=== PATIENT | female | born 1955 | race Caucasian/White ===

== ENCOUNTER → 2022-05-12 07:14 | Outpatient (CLI) | payer SELFPAY ==
[2022-05-12 09:55] LABS: Thyroid Stimulating Hormone 2.57 uIU/mL (0.47-4.68)
== END ==
PROVIDERS: PCP Nurse Practitioner Family; Referring Provider Nurse Practitioner Family; Visit Provider Nurse Practitioner Family
DX: E03.9 Hypothyroidism, unspecified (principal)
CPT/HCPCS: 36415; 84439; 84443

== ENCOUNTER 2023-11-10 07:18 | Emergency (ER) | payer MEDICARE, SELFPAY ==
[2023-11-10] VITALS (11 sets, daily range): BP systolic 148–177; BP diastolic 70–77; PULSE 70–89; RESP 16–19; TEMP 37.1–37.2; O2SAT 96–100; BMI 32.1
[2023-11-10 07:58] LABS: Add Manual Diff / Slide Review NO; Basophils Absolute Auto 100 /uL (0-100); Basophils Percent Auto 0.7 % (0-2); Eosinophils Absolute Auto 200 /uL (0-450); Eosinophils Percent Auto 1.6 % (2-4); Hematocrit 40.2 % (36-46); Lymphocytes Absolute Auto 1900 /uL (1100-4500); Lymphocytes Percent Auto 13.2 % (25-40); Mean Corpuscular HGB Conc 32.4 % (30-36); Mean Corpuscular Hemoglobin 26.4 PG (26-34); Mean Corpuscular Volume 81.7 fL (80-100); Monocytes Absolute Auto 700 /uL (0-900); Monocytes Percent Auto 5.3 % (3-14); Neutrophils Absolute Auto 11100 /uL (1500-7000); Neutrophils Percent Auto 79.2 % (50-75); Platelet Count 413 X10^3/uL (150-400); Red Blood Cell Count 4.92 X10^6/uL (4.0-5.2); Red Cell Distribution Width 15.2 % (11.6-14.8)
--- NOTE | 2023-11-10 08:07 | ED.NAVMDI ---
HPI - Nausea/Vomiting/Diarrhea General Chief complaint: Nausea/Vomiting/Diarrhea Stated complaint: diarrhea t-4, nausea, loss apetite Time Seen by Provider: 11/10/23 08:07 Source: patient, family, RN notes reviewed and old records reviewed Mode of arrival: Ambulatory Limitations: no limitations History of Present Illness HPI Narrative: 68-year-old female with history hypothyroidism, bladder dysfunction who presents with 4 days of chills, low-grade fevers nausea but no vomiting decreased appetite, lower abdominal pain and frequent liquidy brown stools with occasional small amounts of bright red blood up to 10 times daily with a sense of urgency. Patient also notes a little bit of rectal pain. She has a known hemorrhoid but states it seems like more. She denies any back or flank pain. She does not have any chest pain or shortness of breath. She has not had similar symptoms in the past. No recent travel. No other sick contacts she is aware of. She takes medication for thyroid, bladder and has had a prior hysterectomy and appendectomy. States allergic to Keflex and penicillin gets hives but has tolerated amoxicillin in the past. No tobacco, occasional alcohol, no recreational drugs. Related Data Previous Rx's Medication Instructions Recorded amoxicillin 875 mg-potassium 1 tab PO BID #20 tabs 11/10/23 clavulanate 125 mg tablet ondansetron 4 mg disintegrating 4 mg PO QID PRN nausea and 11/10/23 tablet vomiting #10 tabs Allergies Allergy/AdvReac Type Severity Reaction Status Date / Time cephalexin [From Keflex] Allergy Hives Verified 11/10/23 07:33 Penicillins Allergy Hives Verified 11/10/23 07:34 Review of Systems Review of Systems ROS Unobtainable: All systems reviewed & are unremarkable except as noted in HPI and below Patient History Social History Smoking Status: Never smoker Smoking Status: Never smoker alcohol intake frequency: holidays/special occasions only Substance Use Type: does not use Exam Narrative Exam Narrative: GENERAL: Alert and oriented x three, female in mild distress HEENT: Head normocephalic, atraumatic, EOMI, pupils reactive, face symmetric, moist mucous membranes NECK: Supple, full range of motion CARDIOVASCULAR: Regular rate and rhythm without murmurs, rubs or gallops. RESPIRATORY: Breath sounds equal bilaterally, no wheezes rales or rhonchi. ABDOMEN: Soft, positive for suprapubic and left lower quadrant tenderness with some mild left upper quadrant tenderness. Normoactive bowel sounds all 4 quadrants. No guarding or rebound, rigidity, no mass, nondistended. : No CVA tenderness EXTREMITIES: Normal range of motion, no clubbing or edema. Neurovascularly intact NEUROLOGICAL: Cranial nerves II through XII grossly intact. Moving all extremities SKIN: Warm, dry, no petechiae, no rashes or lesions. Initial Vital Signs Initial Vital Signs: Vital Signs Temperature 99 F 11/10/23 07:29 Pulse Rate 89 11/10/23 07:29 Respiratory Rate 19 11/10/23 07:29 Blood Pressure 177/77 H 11/10/23 07:29 Pulse Oximetry 99 11/10/23 07:29 Oxygen Delivery Method Room Air 11/10/23 07:29 Course Orders Ordered: ED Orders 11/10/23 10:28 GI Panel (Film Array) Stat Discontinued Medications Sodium Chloride (Normal Saline 0.9%) 1,000 mls @ 1,000 mls/hr IV BOLUS ONE Stop: 11/10/23 09:19 Last Infusion: 11/10/23 09:41 Dose: Infused Documented By: Admin: 11/10/23 08:23 Dose: 1,000 mls/hr Documented By: JUNO Ondansetron HCl (Ondansetron 4 Mg Odt) 4 mg PO NOW PRN PRN Reason: Nausea And Vomiting Ondansetron HCl (Ondansetron 4 Mg/2 Ml Inj) 4 mg IV NOW PRN PRN Reason: Nausea And Vomiting Last Admin: 11/10/23 08:23 Dose: 4 mg Documented By: JUNO Vital Signs Vital signs: Vital Signs - 8 hr 11/10/23 12:08 Temperature 98.8 F Pulse Rate 72 Respiratory Rate 16 Blood Pressure 161/72 H Pulse Oximetry 98 MDM - Nausea/Vomiting/Diarrhea Lab Data 11/10/23 07:45 11/10/23 07:45 Labs: Lab Results 11/10/23 11/10/23 11/10/23 Range/Units 07:45 09:14 10:28 WBC 14.0 H (4.5-11.0) X10^3/uL RBC 4.92 (4.0-5.2) X10^6/uL Hgb 13.0 (12.0-16.0) g/dL Hct 40.2 (36-46) % MCV 81.7 (80-100) fL MCH 26.4 (26-34) PG MCHC 32.4 (30-36) % RDW 15.2 H (11.6-14.8) % Plt Count 413 H (150-400) X10^3/uL Neut % (Auto) 79.2 H (50-75) % Lymph % (Auto) 13.2 L (25-40) % Monroe % (Auto) 5.3 (3-14) % Eos % (Auto) 1.6 L (2-4) % Baso % (Auto) 0.7 (0-2) % Neut # (Auto) 26946 H (7323-8463) /uL Lymph # (Auto) 1900 (6997-6965) /uL Monroe # (Auto) 700 (0-900) /uL Eos # (Auto) 200 (0-450) /uL Baso # (Auto) 100 (0-100) /uL Sodium 137 (137-145) mmol/L Potassium 4.4 (3.4-5.1) mmol/L Chloride 104 (98-107) mmol/L Carbon Dioxide 22 (22-32) mmol/L BUN 18 H (7-17) mg/dL Creatinine 0.84 (0.52-1.04) mg/dL Estimated GFR > 60 (>60) mL/min BUN/Creatinine Ratio 21.4 (6-22) Glucose 114 H (80-110) mg/dL Calcium 9.8 (8.4-10.2) mg/dL Total Bilirubin 0.4 (0.2-1.3) mg/dL AST 29 (14-36) IU/L ALT 43 H (<35) IU/L Alkaline Phosphatase 78 (38-126) U/L Total Protein 8.5 H (6.3-8.2) g/dL Albumin 4.9 (3.5-5.0) g/dL Globulin 3.6 (1.7-4.1) g/dL Albumin/Globulin Ratio 1.4 (1.0-2.8) Lipase 73 (23-300) U/L Urine RBC 0-1/hpf (0-5/HPF) Urine WBC 5-10/hpf H (0-5/HPF) Ur Squamous Epith Cells 1-5 /hpf (0-5/HPF) Urine Bacteria Many (>30) H (None) Ur Culture Indicated? Specimen cultured Vol Urine Centrifuged 10ml (spun) Stl C. cayetanensis PCR Not detected (Not Detect) Stool Rotavirus (PCR) Not detected (Not Detect) Stool Adenovirus (PCR) Not detected (Not Detect) Stool Astrovirus (PCR) Not detected (Not Detect) Stool Cryptosporidium PCR Not detected (Not Detect) Stl E.coli Shiga Tox PCR Not detected (Not Detect) St Sh/Enteroin Ecoli PCR Not detected (Not Detect) Stl Enterotoxigenic E PCR Not detected (Not Detect) Stool EPEC (PCR) Not detected (Not Detect) Stl E. histolytica PCR Not detected (Not Detect) Stool Giardia Lamblia PCR Not detected (Not Detect) Stool Sapovirus (PCR) Not detected (Not Detect) Stl P. shigelloides PCR Not detected (Not Detect) St Y.enterocolitica PCR Not detected (Not Detect) Stool Vibrio (PCR) Not detected (Not Detect) Stl Vibrio cholerae PCR Not detected (Not Detect) Stl Enteroaggr Ecoli PCR Not detected (Not Detect) Stl Norovirus GI/GII PCR Not detected (Not Detect) Campylobacter (PCR) Not detected (Not Detect) C. difficile Tox (PCR) Not detected (Not Detect) Salmonella (PCR) Not detected (Not Detect) Urine Dip Bedside Urine Glucose Negative Bedside Urine Bilirubin - Negative Bedside Urine Ketone - Negative Urine Specific Sar[place] 1.015 Bedside Urine Occult Blood - Negative Bedside Urine pH 6.0 Bedside Urine Protein - Negative Bedside Urine Urobilinogen - Negative Bedside Urine Nitrite + Positive Bedside Urine Leukocytes +/- [address] scan - abdomen/pelvis: Radiologist's Impression: [address] [address] [address] Scan Report Signed Patient: Blanka Snow MR#: [id number] : 1955 Acct:[id number] Age/Sex: 68 / F Date of Service: 11/10/23 Loc: ED Accession Number: [id number] Procedure: CT abdomen pelvis w con Ordering Provider: Stephany Lewis D.O. PROCEDURE: CT ABDOMEN PELVIS W CON INDICATIONS: fever, diarrhea, small blood LLQ tenderness TECHNIQUE: After the administration of intravenous contrast, axial sections acquired from the lung bases to the pubic symphysis. Coronal and sagittal reformats were performed. For radiation dose reduction, the following was used: automated exposure control, adjustment of mA and/or kV according to patient size. COMPARISON: None. FINDINGS: Image quality: Diagnostic. Lower Chest: No significant findings. ABDOMEN: Liver: No solid mass. Very mild diffuse hepatic steatosis. Gallbladder: No radiopaque gallstones or wall thickening. Biliary ducts: No biliary dilation. Pancreas: No ductal dilation. Spleen: Size is within normal limits. Adrenal Glands: No adrenal nodules. Kidneys and Ureters: No hydronephrosis. No solid mass. No complex renal cystic lesion which requires follow up. Stomach and Bowel: There is diffuse thickening of the wall of the entire colon with associated date edema and inflammatory change in the adjacent fat. Findings are most notable in the descending colon and sigmoid and rectum. Findings are consistent with diffuse colitis. Remote appendectomy. Peritoneum: No abnormal intraperitoneal fluid. No free air. Ventral Wall: No significant ventral hernia. Abdominal Nodes: No retroperitoneal or mesenteric adenopathy by size criteria. Vessels: Aorta and inferior vena cava are normal in size. PELVIS: Pelvic Organs: There is a complex thick-walled cystic lesion the left adnexa, was overall measurements are 6.1 x 3.6 x 5.5 cm. Uterus is surgically absent. Bladder: No bladder wall thickening, accounting for underdistention. Pelvic Nodes: No enlarged lymph nodes. Miscellaneous: No inguinal hernias are seen. Bones: No aggressive osseous abnormality. IMPRESSION: 1. Diffuse colitis. Consider infectious versus inflammatory colitis. Consider C difficile colitis. 2. Complex cystic thick-walled appearance of left adnexa, which measures 6.1 cm in maximum diameter. Recommend nonemergent pelvic ultrasound. 3. Remote appendectomy and hysterectomy. Dictated by: Zain Ramos M.D. on 11/10/2023 at 8:53 Approved by: Zain Ramos M.D. on 11/10/2023 at 8:59 ECG Data Attestation: I personally reviewed and interpreted this ECG as follows: Prior ECG tracings: not available for review Interpretation: Sinus rhythm rate of 76 SD 152 QRS is 76 QTC of 445. No acute ST changes appreciated. No priors for comparison. MDM Narrative Medical decision making narrative: 68-year-old female presents with low-grade fevers chills nausea frequent diarrhea with occasional bright red blood tenderness. She does not appear toxic. Vitals do not support sepsis currently. Suspect possible diverticulitis, colitis or other potential cause. Labs white count of 14 platelets of 413 predominance of neutrophils hemoglobin of 13. Electrolytes show sodium 137 potassium 4 4 chloride of 104 CO2 of 22 with a BUN 18 creatinine 0.84, glucose is 114 LFTs negative except for an ALT of 43. EKG shows sinus rhythm no acute ST changes. Urine has not nitrate positive urine shows 5-10 white cells many bacteria, was sent for culture. CT abdomen pelvis diffuse colitis, consider infectious versus inflammatory consider C diff, complex cystic thick-walled appearance left adnexa measures 6.1 cm. Remote appendectomy and hysterectomy. GI panel is negative. Patient received fluids and Zofran she defers anything for pain initially. Discussed with patient she will follow up regarding the adnexal cystic while change. We will treat with antibiotic for nitrate positive urine, GI panel is negative for any clear and bacterial infection. Patient has not allergy to penicillin and Keflex but states she can take amoxicillin without issue so we will cover with Augmentin this gives her some broader coverage for her abdomen as well. She states she is tolerated this fine in the past. Also a script for Zofran which she is found helpful today. Discharge Plan Departure Patient Disposition: Home Clinical Impression: Colitis, Complex cyst of left ovary Activity Restrictions/Additional Instructions: Your imaging shows colitis, it also shows a complex cystic walled appearance of your left adnexa this should be followed up with OB with a formal pelvic ultrasound as an outpatient. After your diarrhea symptoms have improved maybe appropriate to follow up for colonoscopy, talk with your physician about setting this up. Your urine does show possible signs of infection on top of what maybe more of an inflammatory colitis. Please take oral antibiotic until completed. Prescription was [facility] to [facility]. Please return for fevers new or worsening abdominal back or flank pain, persistent vomiting, increasing black or bloody stools or other new or concerning changes. Prescriptions: New amoxicillin-pot clavulanate 875-125 mg tablet 1 tab PO BID Qty: 20 0RF ondansetron 4 mg tablet,disintegrating 4 mg PO QID PRN (Reason: nausea and vomiting) Qty: 10 0RF Referrals: Rena Roberts, [facility] [employer] [Primary Care Provider] - Stand Alone Forms: Patient Portal/API
[2023-11-10 08:12] LABS: Alanine Aminotransferase 43 IU/L (<35); Albumin 4.9 g/dL (3.5-5.0); Albumin Globulin Ratio 1.4 (1.0-2.8); Alkaline Phosphatase 78 U/L (38-126); Aspartate Aminotransferase 29 IU/L (14-36); BUN Creatinine Ratio 21.4 (6-22); Bilirubin Total 0.4 mg/dL (0.2-1.3); Blood Urea Nitrogen 18 mg/dL (7-17); Calcium 9.8 mg/dL (8.4-10.2); Carbon Dioxide 22 mmol/L (22-32); Chloride 104 mmol/L (98-107); Estimated Glomerular Filt Rate > 60 mL/min (>60); Globulin 3.6 g/dL (1.7-4.1); Glucose 114 mg/dL (80-110); HEMOLYSIS < 15 (0-50); Lipase 73 U/L (23-300); Potassium 4.4 mmol/L (3.4-5.1); Sodium 137 mmol/L (137-145); Total Protein 8.5 g/dL (6.3-8.2)
--- NOTE | 2023-11-10 08:20 | DI.CT.S_ITS ---
PROCEDURE: CT ABDOMEN PELVIS W CON INDICATIONS: fever, diarrhea, small blood LLQ tenderness TECHNIQUE: After the administration of intravenous contrast, axial sections acquired from the lung bases to the pubic symphysis. Coronal and sagittal reformats were performed. For radiation dose reduction, the following was used: automated exposure control, adjustment of mA and/or kV according to patient size. COMPARISON: None. FINDINGS: Image quality: Diagnostic. Lower Chest: No significant findings. ABDOMEN: Liver: No solid mass. Very mild diffuse hepatic steatosis. Gallbladder: No radiopaque gallstones or wall thickening. Biliary ducts: No biliary dilation. Pancreas: No ductal dilation. Spleen: Size is within normal limits. Adrenal Glands: No adrenal nodules. Kidneys and Ureters: No hydronephrosis. No solid mass. No complex renal cystic lesion which requires follow up. Stomach and Bowel: There is diffuse thickening of the wall of the entire colon with associated date edema and inflammatory change in the adjacent fat. Findings are most notable in the descending colon and sigmoid and rectum. Findings are consistent with diffuse colitis. Remote appendectomy. Peritoneum: No abnormal intraperitoneal fluid. No free air. Ventral Wall: No significant ventral hernia. Abdominal Nodes: No retroperitoneal or mesenteric adenopathy by size criteria. Vessels: Aorta and inferior vena cava are normal in size. PELVIS: Pelvic Organs: There is a complex thick-walled cystic lesion the left adnexa, was overall measurements are 6.1 x 3.6 x 5.5 cm. Uterus is surgically absent. Bladder: No bladder wall thickening, accounting for underdistention. Pelvic Nodes: No enlarged lymph nodes. Miscellaneous: No inguinal hernias are seen. Bones: No aggressive osseous abnormality. IMPRESSION: 1. Diffuse colitis. Consider infectious versus inflammatory colitis. Consider C difficile colitis. 2. Complex cystic thick-walled appearance of left adnexa, which measures 6.1 cm in maximum diameter. Recommend nonemergent pelvic ultrasound. 3. Remote appendectomy and hysterectomy. Dictated by: Zain Ramos M.D. on 11/10/2023 at 8:53 Approved by: Zain Ramos M.D. on 11/10/2023 at 8:59
[2023-11-10] MEDS: ONDANSETRON 4 MG/2 ML INJ IV (08:23)
[2023-11-10] MEDS: SODIUM CHLORIDE 0.9% 1,000 ML 1000 ML IV (08:23)
[2023-11-10 09:26] LABS: Bacteria Urine Many (>30); Culture Indicated Urine Specimen Cultured; RBC Urine 0-1/HPF (0-5/HPF); Squamous Epithelial Cell Urine 1-5 /HPF (0-5/HPF); Urine Volume 10mL (spun); WBC Urine 5-10/HPF (0-5/HPF)
[2023-11-10 12:01] LABS: Adenovirus F 40/41 Not Detected (Not Detect); Astrovirus Not Detected (Not Detect); Campylobacter Not Detected (Not Detect); Clostridium difficile toxin AB Not Detected (Not Detect); Cryptosporidium Not Detected (Not Detect); Cyclospora cayetanensis Not Detected (Not Detect); Entamoeba histolytica Not Detected (Not Detect); Enteroaggregative E.coli Not Detected (Not Detect); Enteropathogenic E.coli Not Detected (Not Detect); Enterotoxigenic E.coli It/st Not Detected (Not Detect); Giardia lamblia Not Detected (Not Detect); Norovirus GI/GII Not Detected (Not Detect); Plesiomonsa shigelloides Not Detected (Not Detect); Rotavirus A Not Detected (Not Detect); Salmonella Not Detected (Not Detect); Sapovirus Not Detected (Not Detect); Shiga-like toxin-prod E.coli Not Detected (Not Detect); Shigella/Enteroinvasive E.coli Not Detected (Not Detect); Vibrio Not Detected (Not Detect); Vibrio cholerae Not Detected (Not Detect); Yersinia enterocolitica Not Detected (Not Detect)
--- NOTE | 2023-11-10 12:09 | PC.NURSE ---
ABD DISCOMFORT; NO RECENT DIARRHEA EPISODES.
== END 2023-11-10 12:24 | disposition home or self-care (01) ==
PROVIDERS: Emergency Provider Emergency Medicine; PCP Nurse Practitioner Family
DX: K52.9 Noninfective gastroenteritis and colitis, unspecified (principal); N83.202 Unspecified ovarian cyst, left side
CPT/HCPCS: 36415; 74177; 80053; 81003; 81015; 83690; 85025; 87077; 87086; 87186; 87507; 93005; 93010; 96361; 96374; 99284; J2405; Q9967